=== PATIENT | female | born 1990 | race Caucasian/White ===

== ENCOUNTER 2024-03-12 11:38 | Emergency (ER) | payer MEDICAID ==
[~2024-03-12] VITALS: Ht 167.6 cm; Wt 90.7 kg
[~2024-03-12 11:38] MED LIST: AMOX-494 MT; BUPR1FIL SL; BUPR75TA8 PO; DIPH25CA83 MT; HYDR200T35 PO; HYDR453.3 TOP; NICO-645 TP; PRED10TA PO; PREG75CA PO; SULF1TAB48 MT; TRIA15CR61 TOP
[2024-03-12 11:46] VITALS: O2SAT 97
[2024-03-12 12:59] LABS: EOSINOPHILS % 2.5 % (0.0-5.0); HEMATOCRIT. 34.5 % (36.0-48.0); HEMOGLOBIN. 10.9 g/dL (12.0-16.0); LYMPHOCYTES % 34.7 % (20.0-50.0); MEAN CORPUSCULAR HEMOGLOBIN 26.1 pg (28.0-32.0); MEAN CORPUSCULAR HGB CONC 31.7 g/dL (31.0-37.0); MEAN CORPUSCULAR VOLUME 82.3 fL (81.0-99.0); NEUTROPHILS % 51.8 % (40.0-76.0); RED BLOOD CELL COUNT 4.19 mill/uL (4.2-5.4); RED CELL DISTRIBUTION WIDTH 16.8 % (11.6-14.6)
[2024-03-12 13:06] LABS: CHLORIDE 105 mEq/L (98-107); POTASSIUM 3.8 mEq/L (3.5-5.1); SODIUM 137 mEq/L (136-145)
[2024-03-12 13:07] LABS: CARBON DIOXIDE 28 mEq/L (21-32)
[2024-03-12 13:10] LABS: DIFFERENTIAL COMMENT 1
[2024-03-12 13:12] LABS: CREATININE 0.7 mg/dL (0.6-1.0); GLUCOSE 109 mg/dL (70-105); UREA NITROGEN BLOOD 10 mg/dL (9-23)
[2024-03-12 13:15] LABS: HCG SCREEN NEGATIVE
[2024-03-12] MEDS ORDERED: CEPH500T MT (14:39)
[2024-03-12 15:03] VITALS: BP 134/83; PULSE 95; RESP 16; TEMP 36.83628; O2SAT 97
== END 2024-03-12 15:06 | disposition home or self-care (01) ==
LOC: ER 11:38
DX: M79.89 Other specified soft tissue disorders (principal); Z79.899 Other long term (current) drug therapy; Z88.1 Allergy status to other antibiotic agents; Z90.49 Acquired absence of other specified parts of digestive tract; Z98.51 Tubal ligation status; Z90.89 Acquired absence of other organs
CPT/HCPCS: 36415; 80048; 81025; 83605; 84703; 85025; 93970; 99284